=== PATIENT | female | born 1965 | race Caucasian/White ===

== ENCOUNTER 2020-01-18 18:28 | Emergency (ER) | payer BC, SELFPAY ==
[2020-01-18 18:34] VITALS: BP 136/79; PULSE 74; RESP 18; TEMP 36.2; O2SAT 100
--- NOTE | 2020-01-18 18:51 | ED.URI ---
HPI - URI/Sore Throat General Chief Complaint: Upper Respiratory Infection Stated Complaint: sore throat Time Seen by Provider: 01/18/20 18:51 Source: patient and RN notes reviewed Mode of arrival: ambulatory Limitations: no limitations History of Present Illness HPI Narrative: 54-year-old female presents with concern for 2-day history of sore throat. Reports symptoms worse today. She denies any rhinorrhea, nasal congestion, postnasal drainage, cough, headache, nausea, vomiting, fever, malaise, chills, sweats. Denies taking any medications for symptoms. MD elicited complaint: sore throat Related Data Home Medications Medication Instructions Recorded Confirmed B12 Injections 01/18/20 Vitamin D3 01/18/20 liothyronine 50 mcg PO DAILY 01/18/20 01/18/20 multivitamin 01/18/20 Allergies Allergy/AdvReac Type Severity Reaction Status Date / Time codeine Allergy Severe ANALPHALACTIC Verified 01/18/20 18:40 SHOCK erythromycin base Allergy Intermediate EARS SWELL Verified 01/18/20 18:40 UP ciprofloxacin Allergy Unknown ELEVATES Verified 01/18/20 18:40 B/P BEE STINGS Allergy Unknown Swelling Uncoded 01/18/20 18:40 Review of Systems Review of Systems: Narrative: CONSTITUTIONAL: Denies malaise, chills, sweats, or fever. EYES: Denies visual changes, redness, or discharge. ENT: Denies rhinorrhea, congestion, sinus pain, otalgia. Reports sore throat. CARDIOVASCULAR: Denies chest pain, palpitations, or edema. RESPIRATORY: Denies cough or dyspnea. GASTROINTESTINAL: Denies abdominal pain, nausea, vomiting, diarrhea SKIN: Denies rash or itching. MUSCULOSKELETAL: Denies myalgia. NEUROLOGIC: Denies headache. All systems reviewed & are unremarkable except as noted in HPI and below PMFSH Comments At time of signature, agree with nursing past medical, surgical, social and family history. There is no relevant family history pertinent to the presenting complaint Exam Narrative: Exam Narrative: GENERAL: Well-appearing, well-nourished, and in no acute distress. HEAD: Normocephalic EYES: PERRLA, conjunctivae clear ENT: Nares clear, turbinates edematous and erythematous, clear discharge. Mucous membranes moist. TM pearly kaur with sharp light reflex bilaterally; no tragal tenderness. Oropharynx erythematous without lesions. Tonsils not enlarged and without exudate, no drooling, no hoarseness, no trismus, uvula midline. NECK: Supple. No lymphadenopathy CHEST: Clear to auscultation, breath sounds equal. No wheezing, rhonchi, rales, or stridor. No respiratory distress, speaks in full sentences. HEART: Regular rate and rhythm. No murmur heard. Normal peripheral pulses. SKIN: Warm, dry, no rash. NEURO: Alert and oriented x3. PSYCH: Normal mood and affect Course Course Emergency Course: Patient is aware of diagnosis, understands and agrees to treatment plan. Anticipatory guidance given. Patient agrees to follow-up as directed and is aware of reasons to seek care at the emergency department. Portions of this record may have been created with voice recognition software Vital Signs Vital signs: Vital Signs Temperature 97.1 F L 01/18/20 18:34 Pulse Rate 74 01/18/20 18:34 Respiratory Rate 18 01/18/20 18:34 Blood Pressure 136/79 01/18/20 18:34 Pulse Oximetry 100 01/18/20 18:34 Temperature 97.1 F L 01/18/20 18:34 Pulse Rate 74 01/18/20 18:34 Respiratory Rate 18 01/18/20 18:34 Blood Pressure 136/79 01/18/20 18:34 Pulse Oximetry 100 01/18/20 18:34 Reviewed. MDM - URI/Sore Throat MDM Narrative Medical decision making narrative: Differential diagnosis considered: Strep pharyngitis, allergic rhinitis, upper respiratory tract infection, sinusitis, rhinosinusitis, nasopharyngitis. viral pharyngitis, otitis media, otitis externa, pneumonia, bronchitis, viral cough syndrome, viral syndrome, and influenza. Exam findings show no acute concerns or changes; patient is non-toxic appearing and is in no distre
== END 2020-01-18 19:02 | disposition home or self-care (01) ==
PROVIDERS: Emergency Provider Nurse Practitioner; PCP Family Medicine
DX: J02.9 Acute pharyngitis, unspecified (principal); Z98.84 Bariatric surgery status; E03.9 Hypothyroidism, unspecified
CPT/HCPCS: 87081; 87880; 99213; G0463

== ENCOUNTER 2022-09-13 14:30 | Emergency (ER) | payer BC, SELFPAY ==
--- NOTE | ~2022-09-13 | XR_ITS ---
EXAM: XR finger 3rd LT min 2V DATE: 09/13/2022 15:35 HISTORY: trauma yesterday fell hyperextended/pain proximal phalanx . COMPARISON: None available. FINDINGS: Decreased mineralization. Oblique, nondisplaced intra-articular fracture of the proximal a nd anterior aspect of the left third middle phalange. No dislocation. No other fracture. No lytic or blastic lesion. Scattered degenerative changes. Incidental note of a focal erosion in the proximal se cond proximal phalange, with sclerotic margins, possibly representing quiescent inflammatory change. Soft tissues within normal limits. IMPRESSION: Oblique, nondisplaced, intra-articular fracture of the proximal and anterior aspect of th e left third middle phalange. Reviewed, dictated and finalized at location K. IMPRESSION: Oblique, nondisplaced, intra-articular fracture of the proximal and anterior aspect of the left third middle phalange.
[2022-09-13 14:39] VITALS: BP 157/92; PULSE 80; RESP 16; TEMP 36.3; O2SAT 100
--- NOTE | 2022-09-13 14:54 | ED.UPPEXIN ---
HPI - Extremity Injury (Upper) General Chief Complaint: Extremity Injury, Upper Stated Complaint: lt hand middle finger injury Time Seen by Provider: 09/13/22 14:50 Source: patient and RN notes reviewed Mode of arrival: ambulatory Limitations: no limitations History of Present Illness HPI narrative: 57-year-old female presents with concern for pain, swelling, bruising to the 3rd digit of the left hand. She reports she fell last night and hyperextended the digit. She reports pain to the palm of her hand when she extends the digit. She reports pain with bending the finger, limited range of motion due to pain and swelling Related Data Home Medications Medication Instructions Recorded Confirmed B12 Injections 01/18/20 Vitamin D3 01/18/20 liothyronine 25 mcg tablet 50 mcg PO DAILY 01/18/20 01/18/20 multivitamin 01/18/20 Allergies Allergy/AdvReac Type Severity Reaction Status Date / Time codeine Allergy Severe ANALPHALACTIC Verified 05/19/22 11:56 SHOCK erythromycin base Allergy Intermediate EARS SWELL Verified 05/19/22 11:56 UP ciprofloxacin Allergy Unknown ELEVATES Verified 05/19/22 11:56 B/P BEE STINGS Allergy Unknown Swelling Uncoded 05/19/22 11:56 Review of Systems Review of Systems: CONSTITUTIONAL: Denies malaise, chills, sweats, or fever. SKIN: Denies rash or itching, open skin, laceration, abrasion, redness, warmth MUSCULOSKELETAL: Reports pain, swelling, bruising of the 3rd digit of the left TM NEUROLOGIC: Denies numbness, weakness All systems reviewed & are unremarkable except as noted in HPI and below PMFSH Comments At time of signature, agree with nursing past medical, surgical, social and family history. There is no relevant family history pertinent to the presenting complaint Exam Narrative: GENERAL: Well-appearing, well-nourished, and in no acute distress. HEAD: Normocephalic EYES: PERRLA, conjunctivae clear NECK: Supple. CHEST: Speaks in full sentences. No respiratory distress. HEART: Regular rate and rhythm. Normal and equal peripheral pulses. EXTREMITIES: 3rd digit of left hand has grossly normal strength and sensation. 4/5 strength with digit flexion, extension. Range of motion limited due to pain and swelling. No clubbing, cyanosis. Palmar Digit ecchymosis circumferential edema noted. General digit tenderness. Skin intact. Normal digital cascade with flexion of fingers, median, ulnar and radial nerve intact. Normal sensation of each side of finger. No scissoring. Normal thumb opposition. Good capillary refill and radial pulse. Distal capillary refill less than 3 seconds. Patient is right/left hand dominant SKIN: Warn, dry, intact, pink. No rash NEURO: Alert and oriented x3. PSYCH: Normal mood and affect Course Course Emergency Course: Patient is agreeable to go to try [facility] for x-rays of her finger. Spoke to patient regarding x-ray results, [facility] will [facility], patient giving a follow-up for Ortho. Patient is aware of diagnosis, understands and agrees to treatment plan. Anticipatory guidance given. Patient agrees to follow-up as directed and is aware of reasons to seek care at the emergency department. Portions of this record may have been created with voice recognition software Level of Care: [facility] Visit Vital Signs Vital signs: Vital Signs Temperature 97.3 F L 09/13/22 14:39 Pulse Rate 80 09/13/22 14:39 Respiratory Rate 16 09/13/22 14:39 Blood Pressure 157/92 H 09/13/22 14:39 Pulse Oximetry 100 09/13/22 14:39 Temperature 97.3 F L 09/13/22 14:39 Pulse Rate 80 09/13/22 14:39 Respiratory Rate 16 09/13/22 14:39 Blood Pressure 157/92 H 09/13/22 14:39 Pulse Oximetry 100 09/13/22 14:39 Reviewed. MDM - Extremity Injury (Upper) MDM Narrative Medical decision making narrative: Patients injury and pain is consistent with musculoskeletal etiology. No signs of neurological or vascular compromise
== END 2022-09-13 15:51 | disposition home or self-care (01) ==
PROVIDERS: Emergency Provider Nurse Practitioner; PCP Family Medicine
DX: S62.643A Nondisplaced fracture of proximal phalanx of left middle finger, initial encounter for closed fracture (principal); W19.XXXA Unspecified fall, initial encounter
CPT/HCPCS: 29130; 73140; 99214; G0463